=== PATIENT | female | born 1945 | race Caucasian/White ===

== ENCOUNTER 2024-09-29 12:39 | Outpatient (CLI) | payer MEDICARE, SELFPAY ==
--- NOTE | ~2024-09-29 | US_ITS ---
EXAMINATION: US FNA w image guidance DATE: 09/29/2024 14:01 INDICATION: Nontoxic single thyroid nodule TECHNIQUE: A time-out was performed to verify the patient's name, date of , and procedure to be performed . The procedure and its benefits and risks were discussed with the patient. Risks specifically discus sed included bleeding and infection. The patient understood the risks and agreed to proceed. The neck was prepped and draped in the usual sterile manner. 5 mL 1% lidocaine was used for local anesthesia . 10 passes were made with a 25G needle into the lesion. Appropriate needle location was documented with continuous sonographic guidance. A sterile bandage was applied. There were no immediate compl ications. FINDINGS: Grayscale ultrasound images demonstrate biopsy needles advanced into the cephalad-most solid hypoecho ic nodule at the mid left thyroid lobe 1.6 cm. IMPRESSION: 1. Successful ultrasound-guided fine needle aspiration of the largest 1.6 cm solid hypoechoic left t hyroid nodule of concern. Reviewed, dictated and finalized at location A. IMPRESSION: 1. Successful ultrasound-guided fine needle aspiration of the largest 1.6 cm s olid hypoechoic left thyroid nodule of concern.
--- OUTSIDE RECORDS SUMMARY | 2024-09-29 12:43 | XMS_ITS ---
Author Organization [facility] [place] Address [address] [place], [place] [id number] Care Team Providers Care Student Support Advisor Name Role Phone DILCIA WHITFIELD Unavailable [phone] Rosio oTmlin Unavailable Unavailable KELLI PIERRE Unavailable [phone] Allergies Allergen (clinical drug ingredient) Drug/Non Drug Allergy documented on EMR Reaction Allergy Type Onset Date Status rivaroxaban Xarelto Unknown Drug Allergy 07/19/2021 acti ve morphine Morphine Unknown Drug Allergy 07/19/2021 active REASON FOR VISIT *General care Medications Medication SIG (Take, Route, Fr equency, Duration) Notes Start Date End Date Status Clotrimazole 1 % 1 application Beam Worker ally Once a day; Duration: 30 days 08/23/2024 02/18/2025 Active Vital Signs Height 65.00 in 08/23/2024 Weight 210 lbs 08/23/2024 BMI 34.94 kg/m2 08/23/2024 Height-cm 165.10 cm 08/23/2024 Weight-kg 95.26 kg 08/23/2024 Encounters Encounter Location Date Provider Diagnosis [facility] [address] [facility] [address] [place], [place] [id number] 08/23/2024 KELLI PIERRE Nondisplaced fracture of cuboid bone of right foot, initial encounter for closed fracture S92.214A ; Stress fracture of metatarsal bone of right foot, initial encounter M84.374A ; Pain in right foot M79.671 and Tinea unguium B35.1 Assessments Encounter Date Diagnosis (ICD Code) Assessment Notes Treatment Notes Treatment Clinical Notes Section Notes 08/23/2024 Nondisplaced fracture of cuboid bone of right foot, initial encounter for closed fracture (ICD-10 - S92.214A) Cuboid Stress Fracture: I discussed with the patient the nature and etiology of stress fractures. I discussed various treatment options consisting of immobilization, reducing activity and rest. I also discussed the use of orthotics to help prevent recurrence. Cam Walker: A CAM walker was fitted and dispensed. The patient was instructed on its use. 08/23/2024 Stress fracture of metatarsal bone of right foot, initial encounter (ICD-10 - M84.374A) 08/23/2024 Pain in right foot (ICD-10 - M79.671) 08/23/2024 Tinea unguium (ICD-10 - B35.1) Plan Of Treatment Medication Medication Name Sig Start Date Stop Date Notes Clotrimazole 1 % 1 application Beam Worker ally Once a day; Duration: 30 days 08/23/2024 02/18/2025 Treatment Notes Assessment Notes Nondisplaced fracture of cub oid bone of right foot, initial encounter for closed fracture Cuboid Stress Fracture: I discussed with the patient the nature and etiology of stress fractures. I discussed various treatment options consisting of immobilization, reducing activity and rest. I also discussed the use of orthotics to help prevent recurrence. Cam Walker: A CAM walker was fitted and dispensed. The patient was instructed on its use. Next Appt Details Follow Up: 3 Weeks, Reason: Repeat xrays 3 views of the right foot. See how CAM boot helped. Orthotic scanning prn Provider Name:KELLI SHANKAR, 10/25/2024 10:40:00 AM, [address] [facility] [facility] [address], [place], [place], [id number], Progress Notes * WES IVANOB:05/1945 (79 yo F)Acc No.[id number]:08/23/2024 Patient: RICH ZACARIAS Provider: Del PIERRE :1945 A ge:78 Y S ex:Female Date:08/23/2024 Address:[address] [place], [place] [id number] Subjective: * Chief Complaints: * 1 . *General care. * HPI: H PI: General care P leo presents to the office for at risk foot care. Patient states that their nails are thickened, elongated and painful. Patient states that it is aggravated by shoe gear. Onset is gradual. Patient denies being diabetic., Patient is taking prescription blood thinners., Date last seen by Dr. Tomlin was 06/2024 ., Initials nd. * ROS: G eneral / Constitutional: Patient denies w eakness. R espiratory: Patient denies c hronic cough, shortness of breath, sputum production. C ardiovascular: Patient denies c hest pain, history of [place], irregular heartbeat. M usculoskeletal: Patient complains of h ammertoes, joint pain. ? S kin: Patient complains of f ungal nails, nail changes, calluses and corns. N eurologic: Patient denies d izziness, gait abnormality, headache. * Medical History: N o Reported Medical History.Medical History Verified. * Surgical History: D enies Past Surgical History. * Hospitalization/Major Diagno stic Procedure: D enies Past Hospitalization. * Family History: F ather: PRN - Father: :: Hypertension,,known absent . M other: PRN - Mother: :: Hypertension,,known absent . * Social History: M igrated Social History: M igrated Social History: Smoking Status : Current everyday tobacco user , Alcohol intake : , History of tobacco use : Current everyday tobacco user. * Medications: N one * Allergies: X arelto: Allergy - Onset Date 07/19/2021, Morphine: Allergy - Onset Date 07/19/2021. Objective: * Vitals: W t: 210 lbs, Wt-k.26 kg, Ht: 65.00 in, Ht-cm: 165.10 cm, BMI: 34.94 Index, Body Surface Area: 2.09. * Examination: C onstitutional: Constitutional T he patient is awake, alert, well developed, well groomed and well nourished. D ermatologic: Skin findings: S kin is warm, dry, supple with no breaks in the skin. V ascular: Dorsalis pedis pulse: 2 /4, bilateral. Posterior tibial pulse: 2 /4, bilateral. Capillary refill: l ess than 3 seconds. Edema: m ild nonpitting edema to right lateral rearfoot.? N eurologic: Gross sensation G ross sensation is intact to light touch.? M usculoskeletal: Muscle Strength M uscle strength is 5/5 in regards to dorsiflexion, plantarflexion, inversion, and eversion in bilateral lower extremities. Pain on palpation S evere pain on palpation to the right cuboid. NO pain to the 5th metatarsal base. No pain to the sinus tarsi. ? R adiographs: Right Foot N o evidence of fracture, dislocation, or other osseous lesions, however, there are some irregularities within the cuboid at the articulation of the 5th metatarsal base. It could be arthritis, old trauma, or stress reaction. Xray Order T est Requested: 3 Views Weightbearing (AP, LAT, Oblique) Foot, right. Assessment: * Assessment: 1. N ondisplaced fracture of cuboid bone of right foot, initial encounter for closed fracture - S92.214A (Primary) 2 . S tress fracture of metatarsal bone of right foot, initial encounter - M84.374A 3 . P ain in right foot - M79.671 4 . Tinea unguium - B35.1 Plan: * Treatment: 2. T inea unguium Start Clotrimazole Cream, 1 %, 1 application, Externally, Once a day, 30 days, 1 Unspecified, Refills 5. * Follow Up: 3 Weeks (Reason: Repeat xrays 3 views of the right foot. See how CAM boot helped. Orthotic scanning prn) * Billing Information: * Visit Code: 16062 Office Visit, Est Pt., Level 3. * Procedure Codes: * Electronic signature of LORRIE PIERRE DPM on 09/29/2024 at 12:43 PM CDT Sign off status: Pending * Provider: Del PIERRE Date: 0 08/23/2024 Generated for Kimberly Christiansen on: 0 09/29/2024 12:43 PM CDT History and Physical Notes * HPI (History of Present Illness) Category Sub-Category Detail Notes Category Not es HPI General care Patient presents to the office for at risk foot care. Patient states that their nails are thickened, elongated and painful. Patient states that it is aggravated by shoe gear. Onset is gradual. Patient denies being diabetic., Patient is taking prescription blood thinners., Date last seen by Dr. Tomlin was 06/2024 ., Initials nd Examination Category Sub-Category Detail Notes Category Not es Dermatologic Skin findings: Skin is warm, dr noriega, supple with no breaks in the skin Neurologic Gross sensation Gross sensation is intact to light touch Vascular Dorsalis pedis pulse: 2/4, bilateral Edema: mild nonpitting brenda a to right lateral rearfoot Capillary refill: less than 3 seconds Posterior tibial pulse: 2/4, bilateral Musculoskeletal Muscle Strength Muscle strength is 5/5 in regards to dorsiflexion, plantarflexion, inversion, and eversion in bilateral lower extremities Pain on palpation Severe pain on palpa tion to the right cuboid. NO pain to the 5th metatarsal base. No pain to the sinus tarsi Constitutional Constitutional The patient is a wake, alert, well developed, well groomed and well nourished Radiographs Right Foot No evidence of f racture, dislocation, or other osseous lesions, however, there are some irregularities within the cuboid at the articulation of the 5th metatarsal base. It could be arthritis, old trauma, or stress reaction Xray Order Test Requested: 3 Vi ews Weightbearing (AP, LAT, Oblique) Foot, right
--- OUTSIDE RECORDS SUMMARY | 2024-09-29 12:43 | XMS_ITS | Encounter Summary ---
Author Organization [facility] Care Team Providers Care Pump Machine Operator Name Role Phone Kvng London MD Primary Care Provider [phone] No, Physician Primary Care Provider [phone] Kvng London MD Primary Care Provider [phone] Natividad, Physician Primary Care Provider [phone] Kvng London MD Primary Care Provider [phone] Natividad, Physician Primary Care Provider [phone] Kvng London MD Primary Care Provider [phone] Rosio Tomlin NP Primary Care Provider [phone] Encounter Details Date Type Department Care Team (Latest Contact Info) Description 05/16/2015 Orders Only [facility] ProviderElisabet MD [address] [place] [id number] Social History Tobacco Use Types Packs/Day Years Used Date Smoking Tobacco: Never Assessed Comments Unknown Sex and Gender Information Value Date Recorded Sex Assigned at Not on file Legal Sex 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 us Historical Provider Final Res ult documented in this encounter Visit Diagnoses Not on filedocumented in this encounter Care Teams Pump Machine Operator Relationship Specialty Start Date End Date Kvng London MD PCP - General 09/29/16 10/14/16 No, Physician PCP - General 10/15/16 10/20/16 Kvng London MD PCP - General 10/21/16 10/30/16 No, Physician PCP - General 10/31/16 11/03/16 Kvng London MD PCP - General 11/04/16 11/04/16 No, Physician PCP - General 11/05/16 11/13/16 Kvng London MD PCP - General 11/14/16 01/02/20 Rosio Tomlin, APPAREL SALES ASSOCIATE [address] [place] [address] PCP - General Atomic Process Engineer 01/03/20 documented as of this encounter
--- OUTSIDE RECORDS SUMMARY | 2024-09-29 12:43 | XMS_ITS | Clinical Summary ---
Author Organization [facility] [employer] Address [address] [place] [address] Care Team Providers Care Handkerchief Sample Clerk Name Role Phone Rosio Tomlin NP Primary Care Provider [phone] Allergies Active Allergy Reactions Criticality Noted Date Comments Codeine Unknown,Nausea only,Stomach upset Low 08/16/2015 Stomach/GI Upset Morphine Itching,Unknown Low 08/16/2015 Itching Morphine Sulfate Unknown 01/07/2016 Other Cough Low 08/16/2015 induces asthma attacks Rivaroxaban Rash,Unknown Medium 08/17/2017 xarelto allergy. Hemorrhaging in thigh, pain in veins, fluid filled blister aside of knee (after knee replacement) Medications atorvastatin (LIPITOR) 40 mg tablet 0 Active Omnaris 50 mcg nasal spray U 2 SPRAYS IEN QD 0 Active sertraline (ZOLOFT) 100 mg tablet 0 Active traZODone (DESYREL) 50 mg tablet 0 Active triamcinolone (KENALOG) 0.5 % cream FRANCHESCA EXT AA TID 0 Active traMADoL (ULTRAM) 50 mg tablet Take 1 tablet (50 mg total) by mouth every 6 (six) hours as needed for pain Active fexofenadine (SAYDA) 60 mg tablet Active hydrocortisone 2.5 % cream APPLY RECTALLY TO THE AFFECTED AREA TWICE DAILY NEEDED 1 Active losartan (COZAAR) 100 mg tablet 2 Active amLODIPine (NORVASC) 10 mg tablet 2 Active potassium chloride ER 10 mEq CR tablet 2 Active cholecalciferol (VITAMIN D-3) 2000 unit tablet Act yenni calcium carbonate/vitami n D3 (CALCIUM 600 + D,3, ORAL) Take by mouth Active phenazopyridine (PYRIDIUM) 200 mg tablet 2 Active biotin 300 mcg tablet 1 tablet Active albuterol 2.5 mg /3 mL (0.083 %) nebulizer solutionIndicati ons:Mild intermittent asthma without complication,ILD (interstitial lung disease) (FORM[facility]LY [facility]) Take 3 mL (2.5 mg total) by nebulization every 6 (six) hours as needed for wheezing or shortness of breath 360 mL 3 4 Active cefdinir (OMNICEF) 300 mg capsule Take 1 capsule (300 mg total) by mouth 2 (two) times a day 4 Active albuterol HFA (PROVENTIL HFA,VENTOLIN HFA,PROAIR HFA) 90 mcg/actuation inhaler Inhale 2 puffs every 6 (six) hours as needed for wheezing 1 each 1 4 Active montelukast (SINGULAIR) 10 mg tablet Take 1 tablet (10 mg total) by mouth nightly 90 tablet 3 5 Active fluticasone propion-salmeter oL (ADVAIR DISKUS) 500-50 mcg/dose diskus inhaler Inhale 1 puff 2 (two) times a day Rinse mouth with water after use. Do not swallow. 1 each 11 5 Active lidocaine (LIDODERM) 5 %Indications:Chr onic pain of left knee Place 1 patch on the skin daily for 12 hours Apply to left knee as directed. 30 patch 3 5 Active Eliquis 5 mg tablet Take by mouth 2 (two) times a day 5 Active gabapentin (NEURONTIN) 100 mg capsule Take 1 capsule (100 mg total) by mouth 3 (three) times a day 5 Active Active Problems Problem Noted Date Diagnosed Date Nasal septal perforation 09/15/2023 Non-seasonal allergic rhinitis 09/15/2023 Pulmonary nodule 09/18/2022 Ear fullness, left 09/03/2022 Assessment & Plan (09/03/2022 9:15 PM CDT): Both ears look good. I do not find any evidence of infection. Audiologic testing is also normal and shows no evidence of eustachian tube dysfunction or hearing loss. I think her symptoms are probably referred and likely secondary to her spinal stenosis. I think she should probably ask physical therapy at her next appointment to possibly address her neck issues. Otherwise I really did not have any further recommendations. I will see her as needed however. Spinal stenosis of cervical region 09/03/2022 Assessment & Plan (09/03/2022 9:16 PM CDT): I think this is probably causing her symptoms. I really did not find anything problematic. She is a talk with her primary and or her physical therapist about this. She can always follow up as needed however. Obstructive sleep apnea 04/07/2021 Mild intermittent asthma 04/01/2021 ILD (interstitial lung disease) 04/01/2021 Smoking greater than 40 pack years 04/01/2021 Recurrent major depressive disorder, in full rem ission 03/01/2021 Aortic calcification 12/06/2020 S/P reverse total shoulder arthroplasty, left Rotator cuff arthropathy of left shoulder 2018 Other cervical disc displace ment, unspecified cervical region 03/24/2018 Other cervical disc degenera tion, unspecified cervical region 03/24/2018 Spondylolisthesis of cervicothoracic region 07/2018 Cervical radiculopathy 02/23/2018 Overview (09/28/2021): Added automatically from request for surgery [id number] OAB (overactive bladder) 04/09/2017 Overview (09/28/2021): Takes meds prn Urinary incontinence 01/16/2017 Abnormal carotid ultrasound 10/27/2016 Chest pain 10/08/2016 Hyperlipidemia 10/08/2016 Paroxysmal atrial fibrillation 10/08/2016 Hypertension 10/08/2016 Chronic rhinitis 09/16/2016 Obesity (BMI 35.0-39.9 without comorbidity) 03/2016 Other chronic pain 05/21/2016 Insomnia 02/26/2016 Urge incontinence 02/26/2016 Knee pain 01/03/2016 Osteoarthritis 08/15/2015 Anxiety 04/12/2013 Asthma 04/12/2013 Depression 04/12/2013 Lichen sclerosus et atrophicus of the vulva 03/20 Ocular hypertension 04/12/2013 Post-traumatic stress disorder 04/12/2013 Encounters Date Type Department Care Team Description 09/12/2024 11:30 AM CDT Office Visit [facility] [place] [address] [place] [address] Jesse Reese MD Pulmonary nodule (Primary Dx); Mild intermittent asthma without complication; Chronic rhinitis; Primary hypertension 08/22/2024 12:46 PM CDT - 08/22/2024 11:59 PM CDT Hospital Encounter [facility] Respiratory Therapy [address] [place] [address] ILD (interstitial lung disease) ([facility]) Discharge Disposition: Discharge to home or self care from Last 3 Months Immunizations Immunization Administration Dates Next Due Influenza, Quadrivalent, Hig h Dose, Preservative Free, Intrr 11/02/2019 Influenza, Trivalent, Adjuva nted, Intramuscular 11/24/2017,11/23/2017 Influenza, Trivalent, High D ose, Split, Preservative Free, Intramuscular 11/16/2016,12/01/2015 Influenza, Trivalent, IM (MDV) 10/31/2013 Influenza, Trivalent, Preser vative Free, Intramuscular 12/10/2014 Influenza, Unspecified 11/12/2020,2019,11/24/2017,11/16,12/01/2015 Moderna Sars-cov-2 Monovalen t Booster Vaccination .25 Ml dose (12+ YRS) 05/17/2021 Pneumococcal Conjugate PCV 13 08/17/2017 Pneumococcal Polysaccharide PPV23 02/16/2011 Surgical History Surgery Date Site/Laterality Comments BICEPS TENODESIS COLONOSCOPY FRACTURE SURGERY HYSTERECTOMY REPLACEMENT TOTAL KNEE SHOULDER SURGERY BLADDER SUSPENSION TONSILLECTOMY ELBOW SURGERY REPLACEMENT TOTAL KNEE Bilateral Medical History Medical History Date Comments Allergic rhinitis Anxiety Arthritis Asthma Depression Hyperlipidemia Hypertension Lichen sclerosus Obesity PTSD (post-traumatic stress disorder) Spinal stenosis Urinary incontinence Cervical disc disease Cervical stenosis (uterine cervix) Dermatitis Lumbar stenosis Disc disorder of lumbar region Osteopenia Osteoarthritis HL (hearing loss) Family History Medical History Relation Name Comments Heart attack Father Family history of heart attack - (Added by TW Conv) Heart disease Father Hypertension Father Family history of hypertension - (Added by TW Conv) Sudden Cardiac Father Family history of sudden cardiac - (Added by TW Conv) Heart attack Mother Family history of heart attack - (Added by TW Conv) Heart disease Mother Hypertension Mother Family history of hypertension - (Added by TW Conv) Stroke Mother Family history of stroke - (Added by TW Conv) Sudden Cardiac Mother Family history of sudden cardiac - (Added by TW Conv) Heart disease Other 1 Family history of cardiac disorder - (Added by TW Conv) Arthritis Other 2 Family history of arthritis - (Added by TW Conv) Gout Other 3 Family history of gout - (Added by TW Conv) Stroke Other 4 Family history of cerebrovascular accident (CVA) - (Added by TW Conv) Alcohol abuse Other 5 Family history of alcoholism - (Added by TW Conv) Hypertension Other 6 Family history of hypertension - (Added by TW Conv) Relation Name Status Comments Father Mother Other 1 Other 2 Other 3 Other 4 Other 5 Other 6 Social History Tobacco Use Types Packs/Day Years Used Date Smoking Tobacco: Former Cigarettes 0.2 34.6 S tarted: 1990 Smokeless Tobacco: Never Tobacco Cessation:Counseling Given: Not Answered AUDIT-C Answer Date Recorded Q1: How often do you have a drink containing alc ohol? Monthly or less 10/01/2021 Q2: How many drinks containi ng alcohol do you have on a typical day when you are drinking? 1 or 2 10/01/2021 Q3: How often do you have si x or more drinks on one occasion? Never 10/01/2021 Comments Unknown Sex and Gender Information Value Date Recorded Sex Assigned at Not on file Legal Sex Female 8:56 AM BAG HANGER Gender Identity Not on file Sexual Orientation Not on file Obstetrics History Last Filed Vital Signs Vital Sign Reading Time Taken Comments Blood Pressure 112/70 09/12/2024 11:25 AM CDT Pulse 67 09/12/2024 11:25 AM CDT Temperature 35.7 C (96.3 F) 09/12/2024 11:25 AM CDT Respiratory Rate 18 09/12/2024 11:25 AM CDT Oxygen Saturation 89% 09/12/2024 11:25 AM CDT Inhaled Oxygen Concentration - - Weight 105.7 kg (233 lb) 09/12/2024 11:25 AM CDT Height 165.1 cm (5' 5) 09/12/2024 11:25 AM CDT Body Mass Index 38.77 09/12/2024 11:25 AM CDT Plan of Treatment Health Maintenance Due Date Last Done Comments Depression Screening 1944 Fall Risk Assessment 1944 Hepatitis B Screening 1962 Zoster Vaccine (1 of 2) 1994 Well Visit 65+ 2009 Osteoporosis Screening-Bone Density Scan 06/25/2022 06/25/2020, 03/14/2015 Covid-19 Vaccine (5 2023-2 5 season) 2023 05/17/2021, 12/07/2020, 04/11/2020, Additional history exists Influenza Vaccine (#1) 2024 , 11/17/2023, 11/12/2020, Additional history exists DTaP/Tdap/Td Vaccine (2 - Td or Tdap) 10/19/2033 10/20/2023 Pneumococcal vaccine 65+ Completed 08/17/2017, 02/2011 Procedures Procedure Name Priority Date/Time Associated Diagnosis Comments PULMONARY FUNCTION TEST (PFT) Routine 08/22/2024 1:43 PM CDT ILD (interstitial lung disease) (HCC) DEXA AXIAL SKELETON BONE DENSITY 1 OR MORE SITES Routine 03/14/2015 2:52 PM BAG HANGER from Last 3 Months or Most Recently Relevant to Health Maintenance Results * (ABNORMAL) Pulmonary Function Test - (08/22/2024 1:43 PM CDT) FVC POST 2.69 1.91 - 3.59 L [facility] FEV1 POST 1.85 1.45 - 2.66 L [facility] [id number] 68.68 62.17 - 89.42 % [facility] ABK00-26% POST 1.29 0.68 - 3.05 L/s [facility] PEF POST 3.88(A) 4.26 - 7.22 L/s [facility] DLCOc SB 14.65(A) 15.47 - 26.94 ml/(min*mm Hg) [facility] DLCO/VA PRE 3.63 2.70 - 5.34 ml/(min*mm Hg*L) [facility] VA 4.03(A) 5.12 - 5.12 L [facility] TLC PRE 5.57 4.29 - 6.26 L [facility] VC PRE 2.75 1.95 - 3.33 L [facility] IC PRE 2.51(A) 2.10 - 2.10 [address] [facility] FRC PL PRE 3.06 2.01 - 3.66 L [facility] ERV PRE 0.24(A) 0.54 - 0.54 L [facility] RV PRE 2.82 1.72 - 2.87 L [facility] VTG 3.23 L [facility] RAW PRE 3.25(A) 3.06 - 3.06 cmH2O*s/L [facility] FVC PRE 2.72 1.91 - 3.59 L [facility] FEV1 PRE 1.89 1.45 - 2.66 L [facility] [id number] 69.63 62.17 - 89.42 % [facility] FLM97-20% PRE 0.51(A) 0.68 - 3.05 L/s [facility] PEF PRE 4.77 4.26 - 7.22 L/s [facility] Anatomical Region Laterality Modality PFT 08/22/2024 12:4 8 PM CDT Narrative 08/23/2024 5:20 PM CDT PFT INTERPRETATION Spirometry: Normal spirometry though FEV1/FVC ratio does approach the lower limit of normal There is no significant response to bronchodilator administration. This does not preclude the use of bronchodilator therapy if clinically indicated. Flow volume loop: obstructive pattern Lung volumes: Mild air trapping. Normal lung capacity. Decreased expiratory reserve volume which is typically related to obesity or other abdominal processes. DLCO: Mild diffusion impairment with pattern suggestive of chest wall/obesity effects on ventilation or suboptimal inspiration during testing. Electronically signed by Dayday Escalona MD us Jesse Reese MD PFT ORDERABLES Final Result * Dexa Axial Skeleton Bone Density 1 or 2 Site (03/14/2015 2:52 PM BAG HANGER) Anatomical Region Laterality Modality Body N/A Radiographic Bailee ging 03/14/2015 2:52 PM BAG HANGER Impressions 03/14/2015 3:30 PM BAG HANGER Low bone mass. Fracture risk, as above. Bone mineral density: Normal (T-score above or = -1.0) Low bone mass (T-score between -1.0 and -2.5) replaces the previously used term osteopenia Osteoporosis (T-score = or below -2.5) Medical evaluation for secondary causes of low bone mineral density may be appropriate. FRAX is a World Health Organization validated fracture risk assessment tool that calculates a person's 10 year probability of a major osteoporosis related fracture and hip fracture. According to the National Osteoporosis Foundation guidelines, postmenopausal women and men age 50 or older with low bone mass and a 10 year probability of a major osteoporosis related fracture = or greater than 20% or a 10 year probability of a hip fracture = or greater than 3% should be considered for treatment. For further information, including treatment recommendations, please refer to the 2013 ISCD Official Positions (http://www.iscd.org) and the NOF's Clinician's Guide to Prevention and Treatment of Osteoporosis (http://www.nof.org/professionals/clinical-guidelines) THIS IS AN ELECTRONICALLY VERIFIED REPORT 03/14/2015 3:26 PM: Jori Calvert M.D. Jori Calvert M.D. NH:jose 03:26 PM 03:26 PM [facility] [EOD] Narrative 03/14/2015 3:30 PM BAG HANGER EXAMINATION: Dual x-ray absorptiometry (DEXA) HISTORY: 69 year old postmenopausal female. Current Height: 64 inches Maximum Height: 66.5 inches Weight: 226 pounds RISK FACTORS: History of glucocorticoid use. She has taken hormone-replacement therapy, multivitamin and vitamin D. She regularly performs weightbearing exercise and regularly consumes dairy products and caffeinated beverages. COMPARISON(S): None INSOLE ROUNDER/MODEL: Soniq[employer] SL (S/N 06037) FINDINGS: AP lumbar spine L1-L4 Total BMD is 1.254 g/ey2R-zzxcc is 1.9 Measured BMD is thought to be spuriously elevated due to arthropathy. Left Hip Total BMD is 0.895 g/pz6J-nrpwc is -0.4 Neck BMD is 0.641 g/uy8E-hecur is -1.9 Fracture risk assessment (FRAX): 10 year risk for a major osteoporotic fracture is 15 % 10 year risk for a hip fracture is 2.9 % The FRAX tool has not been validated in patients currently or previously treated with pharmacotherapy for osteoporosis. In such patients, clinical judgement must be exercised in interpreting FRAX scores as the fracture risk may be overestimated. Procedure Note Provider, MD Elisabet - 07/04/2020 EXAMINATION: Dual x-ray absorptiometry (DEXA) HISTORY: 69 year old postmenopausal female. Current Height: 64 inches Maximum Height: 66.5 inches Weight: 226 pounds RISK FACTORS: History of glucocorticoid use. She has taken hormone-replacement therapy, multivitamin and vitamin D. She regularly performs weightbearing exercise and regularly consumes dairy products and caffeinated beverages. COMPARISON(S): None INSOLE ROUNDER/MODEL: Soniq[employer] SL (S/N 02074) FINDINGS: AP lumbar spine L1-L4 Total BMD is 1.254 g/ix1R-xnoni is 1.9 Measured BMD is thought to be spuriously elevated due to arthropathy. Left Hip Total BMD is 0.895 g/le7C-iuvhw is -0.4 Neck BMD is 0.641 g/bk4A-oiyuw is -1.9 Fracture risk assessment (FRAX): 10 year risk for a major osteoporotic fracture is 15 % 10 year risk for a hip fracture is 2.9 % The FRAX tool has not been validated in patients currently or previously treated with pharmacotherapy for osteoporosis. In such patients, clinical judgement must be exercised in interpreting FRAX scores as the fracturerisk may be overestimated. IMPRESSION: Low bone mass. Fracture risk, as above. Bone mineral density: Normal (T-score above or = -1.0) Low bone mass (T-score between -1.0 and -2.5) replaces the previously used term osteopenia Osteoporosis (T-score = or below -2.5) Medical evaluation for secondary causes of low bone mineral density may be appropriate. FRAX is a World Health Organization validated fracture risk assessmenttool that calculates a person's 10 year probability of a major osteoporosisrelated fracture and hip fracture. According to the National OsteoporosisFoundation guidelines, postmenopausal women and men age 50 or older with low bonemass and a 10 year probability of a major osteoporosis related fracture = or greater than 20% or a 10 year probability of a hip fracture = or greaterthan 3% should be considered for treatment. For further information, including treatment recommendations, please referto the 2013 ISCD Official Positions (http://www.iscd.org) and the NOF's Clinician's Guide to Prevention and Treatment of Osteoporosis (http://www.nof.org/professionals/clinical-guidelines) THIS IS AN ELECTRONICALLY VERIFIED REPORT 03/14/2015 3:26 PM: Jori Calvert M.D. Jori Calvert M.D. NH:ca 03:26 PM 03:26 PM [facility] [EOD] Aleax Llamas DO IMG DXA PROCEDURES Fin al Result from Last 3 Months or Most Recently Relevant to Health Maintenance Insurance [facility] MEDICARE ADVANTAGE [facility] MEDICARE ADVANTAGE Advance Directives For more information, please contact: [phone] Documents on File Type Date Recorded Patient Heating Technician Expl anation ADVANCE DIRECTIVE 08/16/2015 12:00 AM KIM Herndon OF [employer] Care Teams Handkerchief Sample Clerk Relationship Specialty Start Date End Date Rosio Tomlin NP [address] [place] [address] PCP - General Collection Officer 01/03/20
--- OUTSIDE RECORDS SUMMARY | 2024-09-29 12:43 | XMS_ITS | Encounter Summary ---
Author Organization [facility] Facility Care Team Providers Care Grip Boss Name Role Phone Kvng London MD Primary Care Provider [phone] No, Physician Primary Care Provider [phone] Kvng London MD Primary Care Provider [phone] Natividad, Physician Primary Care Provider [phone] Kvng London MD Primary Care Provider [phone] Natividad, Physician Primary Care Provider [phone] Kvng London MD Primary Care Provider [phone] Rosio Tomlin NP Primary Care Provider Encounter Details Date Type Department Care Team (Latest Contact Info) Description 08/15/2015 Orders Only [facility] ProviderElisabet MD [address] [place] [address] Social History Tobacco Use Types Packs/Day Years Used Date Smoking Tobacco: Never Assessed Comments Unknown Sex and Gender Information Value Date Recorded Sex Assigned at Not on file Legal Sex Female 8:56 AM APPEALS NURSE Gender Identity Not on file Sexual Orientation Not on file documented as of this encounter Plan of Treatment Not on file documented as of this encounter Procedures Procedure Name Priority Date/Time Associated Diagnosis Comments PROCEDURE - RESULT 08/15/2015 12 :00 AM CDT documented in this encounter Results * PROCEDURE - RESULT (08/15/2015 12:00 AM CDT) Narrative 08/15/2015 12:00 AM CDT Ordered by an unspecified provider. us Historical Provider Final Res ult documented in this encounter Visit Diagnoses Not on filedocumented in this encounter Care Teams Grip Boss Relationship Specialty Start Date End Date Kvng London MD PCP - General 09/29/16 10/14/16 No, Physician PCP - General 10/15/16 10/20/16 Kvng London MD PCP - General 10/21/16 10/30/16 No, Physician PCP - General 10/31/16 11/03/16 Kvng London MD PCP - General 11/04/16 11/04/16 No, Physician PCP - General 11/05/16 11/13/16 Kvng London MD PCP - General 11/14/16 01/02/20 Rosio Tomlin, CEREAL MILLER [address] [place] [address] PCP - General Arm Maker 01/03/20 documented as of this encounter
--- OUTSIDE RECORDS SUMMARY | 2024-09-29 12:43 | XMS_ITS | Encounter Summary ---
Author Organization [facility] Facility Care Team Providers Care Back Wedger Name Role Phone Kvng London MD Primary Care Provider [phone] No, Physician Primary Care Provider [phone] Kvng London MD Primary Care Provider [phone] Natividad, Physician Primary Care Provider [phone] Kvng London MD Primary Care Provider [phone] Natividad, Physician Primary Care Provider [phone] Kvng London MD Primary Care Provider Rosio Tomlin NP Primary Care Provider [phone] Encounter Details Date Type Department Care Team (Latest Contact Info) Description 08/07/2015 Orders Only [facility]INCON[facility] ProviderElisabet MD [address] [place] [address] Social History Tobacco Use Types Packs/Day Years Used Date Smoking Tobacco: Never Assessed Comments Unknown Sex and Gender Information Value Date Recorded Sex Assigned at Not on file Legal Sex Female 8:56 AM DISTILLING DEPARTMENT SUPERVISOR Gender Identity Not on file Sexual Orientation Not on file documented as of this encounter Plan of Treatment Not on file documented as of this encounter Procedures Procedure Name Priority Date/Time Associated Diagnosis Comments PROCEDURE - RESULT 08/08/2015 12 :00 AM CDT documented in this encounter Results * PROCEDURE - RESULT (08/08/2015 12:00 AM CDT) Narrative 08/08/2015 12:00 AM CDT Ordered by an unspecified provider. us Historical Provider Final Res ult documented in this encounter Visit Diagnoses Not on filedocumented in this encounter Care Teams Back Wedger Relationship Specialty Start Date End Date Kvng London MD PCP - General 09/29/16 10/14/16 No, Physician PCP - General 10/15/16 10/20/16 Kvng London MD PCP - General 10/21/16 10/30/16 No, Physician PCP - General 10/31/16 11/03/16 Kvng London MD PCP - General 11/04/16 11/04/16 No, Physician PCP - General 11/05/16 11/13/16 Kvng London MD PCP - General 11/14/16 01/02/20 Rosio Tomlin, CURRICULUM SUPERVISOR [address] [place] [address] PCP - General Front Desk Specialist 01/03/20 documented as of this encounter
--- OUTSIDE RECORDS SUMMARY | 2024-09-29 12:43 | XMS_ITS | Encounter Summary ---
Author Organization [facility] Facility Care Team Providers Care Social Work Supervisor Name Role Phone Kvng London MD Primary Care Provider [phone] No, Physician Primary Care Provider [phone] Kvng London MD Primary Care Provider [phone] Natividad, Physician Primary Care Provider [phone] Kvng London MD Primary Care Provider [phone] Natividad, Physician Primary Care Provider [phone] Kvng London MD Primary Care Provider [phone] Rosio Tomlin NP Primary Care Provider [phone] Encounter Details Date Type Department Care Team (Latest Contact Info) Description 03/14/2015 Orders Only [facility] ProviderElisabet MD [address] [place] [id number] Social History Tobacco Use Types Packs/Day Years Used Date Smoking Tobacco: Never Assessed Comments Unknown Sex and Gender Information Value Date Recorded Sex Assigned at Not on file Legal Sex Female 8:56 AM CASTER OPERATOR Gender Identity Not on file Sexual Orientation Not on file documented as of this encounter Plan of Treatment Not on file documented as of this encounter Procedures Procedure Name Priority Date/Time Associated Diagnosis Comments SCAN - LABS 03/21/2015 12:00 AM CASTER OPERATOR documented in this encounter Results * SCAN - LABS (03/21/2015 12:00 AM CASTER OPERATOR) Narrative 03/21/2015 12:00 AM CASTER OPERATOR Ordered by an unspecified provider. us Historical Provider Final Res ult documented in this encounter Visit Diagnoses Not on filedocumented in this encounter Care Teams Social Work Supervisor Relationship Specialty Start Date End Date Kvng London MD PCP - General 09/29/16 10/14/16 No, Physician PCP - General 10/15/16 10/20/16 Kvng London MD PCP - General 10/21/16 10/30/16 No, Physician PCP - General 10/31/16 11/03/16 Kvng London MD PCP - General 11/04/16 11/04/16 No, Physician PCP - General 11/05/16 11/13/16 Kvng London MD PCP - General 11/14/16 01/02/20 Rosio Tomlin TRANSPORTATION SECURITY OFFICER [address] [place] [address] PCP - General Business Education Instructor 01/03/20 documented as of this encounter
--- OUTSIDE RECORDS SUMMARY | 2024-09-29 12:44 | XMS_ITS ---
Author Organization [facility] Address [address] [place], [place] [id number] Care Team Providers Care Ink Blender Name Role Phone DILCIA WHITFIELD Unavailable [phone] Rosio Tomlin Unavailable Unavailable KELLI PIERRE Unavailable [phone] Allergies Allergen (clinical drug ingredient) Drug/Non Drug Allergy documented on EMR Reaction Allergy Type Onset Date Status rivaroxaban Xarelto Unknown Drug Allergy 07/19/2021 acti ve morphine Morphine Unknown Drug Allergy 07/19/2021 active REASON FOR VISIT stress fracture check with xray Medications Medication SIG (Take, Route, Fr equency, Duration) Notes Start Date End Date Status Clotrimazole 1 % 1 application Signal Integrity Engineer ally Once a day; Duration: 30 days 08/23/2024 02/18/2025 Active Vital Signs Height 65.00 in 09/13/2024 Weight 230 lbs 09/13/2024 BMI 38.27 kg/m2 09/13/2024 Height-cm 165.10 cm 09/13/2024 Weight-kg 104.33 kg 09/13/2024 Encounters Encounter Location Date Provider Diagnosis [facility] [address] [place], [place] [id number] 09/13/2024 KELLI PIERRE Plan Of Treatment Next Appt Details Provider Name:KELLI SHANKAR, 10/25/2024 10:40:00 AM, [address], [place], [place], [id number], Progress Notes * WES IVANOB:05/1945 (79 yo F)Acc No.[id number]:09/13/2024 Patient: RICH ZACARIAS Provider: Del PIERRE :1945 A ge:78 Y S ex:Female Date:09/13/2024 Address:[address] [place] [address] [place] [address] Subjective: * Chief Complaints: * 1 . Stress fracture check with xray. * HPI: H PI: Follow Up Visit P leo presents for follow up visit for a fracture on the right foot. Patient states it hurts when he doesnt wear arch support. , MA: CARMELO.? * Medical History: M edical History Verified. * Family History: F ather: PRN - Father: :: Hypertension,,known absent . M other: PRN - Mother: :: Hypertension,,known absent . * Social History: M igrated Social History: M igrated Social History: Smoking Status : Current everyday tobacco user , Alcohol intake : , History of tobacco use : Current everyday tobacco user. * Medications: T aking Clotrimazole 1 % Cream 1 application Externally Once a day , stop date 02/18/2025, Medication List reviewed and reconciled with the patient * Allergies: X arelto: Allergy - Onset Date 07/19/2021, Morphine: Allergy - Onset Date 07/19/2021. Objective: * Vitals: W t: 230 lbs, Wt-k.33 kg, Ht: 65.00 in, Ht-cm: 165.10 cm, BMI: 38.27 Index, Body Surface Area: 2.19. Assessment: Plan: * Treatment: * Immunizations: Immunization record has been reviewed and updated. * Preventive Medicine: Screenings: F all risk screening F all Risk Assessment: N o falls in the past year. * Billing Information: * Visit Code: * Procedure Codes: * Electronic signature of LORRIE PIERRE DPM on 09/29/2024 at 12:44 PM CDT Sign off status: Pending * Provider: Del PIERRE Date: 0 09/13/2024 Generated for Kimberly turk/Liliana/eTzainitting on: 09/29/2024 12:44 PM CDT History and Physical Notes * HPI (History of Present Illness) Category Sub-Category Detail Notes Category Not es HPI Follow Up Visit Patient presents for follow up visit for a fracture on the right foot. Patient states it hurts when he doesnt wear arch support. , MA: CARMELO
--- OUTSIDE RECORDS SUMMARY | 2024-09-29 12:44 | XMS_ITS | Patient Health Record ---
Author Organization [facility] Address [address] [facility] [address] [place], [place] [id number] Care Team Providers Care Lugger Name Role Phone DILCIA WHITFIELD Unavailable [phone] Rosio Tomlin Unavailable Unavailable ALVINAYYESSENIACODY Unavailable [phone] KELLI PIERRE Unavailable [phone] Allergies Allergen (clinical drug ingredient) Drug/Non Drug Allergy documented on EMR Reaction Allergy Type Onset Date Status rivaroxaban Xarelto Unknown Drug Allergy 07/19/2021 acti ve morphine Morphine Unknown Drug Allergy 07/19/2021 active Reason For Referral No Information Medications Medication SIG (Take, Route, Fr equency, Duration) Notes Start Date End Date Status Clotrimazole 1 % 1 application Cook Helper Juice ally Once a day; Duration: 30 days 08/23/2024 02/18/2025 Active Immunizations Vaccine Route Administration Date Status Comme nts Influenza, high dose seasonal Unknown 11/15/2022 Admini stered Vital Signs Height-cm 165.10 cm 09/13/2024 Weight-kg 104.33 kg 09/13/2024 Height 65.00 in 09/13/2024 Weight 230 lbs 09/13/2024 BMI 38.27 kg/m2 09/13/2024 Encounters Encounter Location Date Provider Diagnosis [facility] [address] [place], [place] [id number] 03/14/2024 DILCIA WHITFIELD Tinea unguium B35.1 ; Acquired keratosis [keratoderma] palmaris et plantaris L85.1 ; 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, bilateral legs I70.213 ; Pain in right foot M79.671 and Pain in left foot M79.672 [facility] [address] [place], [place] [id number] 08/23/2024 KELLI PIERRE Nondisplaced fracture of cuboid bone of right foot, initial encounter for closed fracture S92.214A ; Stress fracture of metatarsal bone of right foot, initial encounter M84.374A ; Pain in right foot M79.671 and Tinea unguium B35.1 [facility] [address] [place], [place] [id number] 08/30/2024 DILCIA SNOOK Pain in right foot M79.671 and Nondisplaced fracture of cuboid bone of right foot, subsequent encounter for fracture with routine healing S92.214D [facility] [address] [place], [place] [id number] 09/13/2024 KELLI PIERRE [facility] [address] [place], [place] [id number] 10/14/2023 CODY GARCIA Other hammer toe(s) (acquired), right foot M20.41 ; Tinea unguium B35.1 ; Other hammer toe(s) (acquired), left foot M20.42 ; Pain in right toe(s) M79.674 ; Pain in left toe(s) M79.675 ; Pain in right foot M79.671 ; Pain in left foot M79.672 ; Unspecified atherosclerosis of torres martinez arteries of extremities, bilateral legs I70.203 and Acquired keratosis [keratoderma] palmaris et plantaris L85.1 [facility] [address] [place], [place] [id number] 12/18/2023 CODY GARCIA Other hammer toe(s) (acquired), right foot M20.41 ; Tinea unguium B35.1 ; Other hammer toe(s) (acquired), left foot M20.42 ; Pain in right toe(s) M79.674 ; Pain in left toe(s) M79.675 ; Pain in right foot M79.671 ; Pain in left foot M79.672 ; Unspecified atherosclerosis of torres martinez arteries of extremities, bilateral legs I70.203 and Acquired keratosis [keratoderma] palmaris et plantaris L85.1 [facility] [place] [address] [facility] [address] [place], [place] [id number] 05/17/2024 DILCIA SNOOK Tinea unguium B35.1 ; Acquired keratosis [keratoderma] palmaris et plantaris L85.1 ; 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, bilateral legs I70.213 ; Pain in right foot M79.671 and Pain in left foot M79.672 [facility] [address] [place], [place] [id number] 08/05/2024 DILCIA SNOOK Nondisplaced fractur e of cuboid bone of right foot, initial encounter for closed fracture S92.214A ; Stress fracture of metatarsal bone of right foot, initial encounter M84.374A and Pain in right foot M79.671 Assessments Encounter Date Diagnosis (ICD Code) Assessment Notes Treatment Notes Treatment Clinical Notes Section Notes 10/14/2023 Tinea unguium (ICD-10 - B35.1) Aseptic debridement of elongated thickened nails x 10 using sterile nippers, nails were debrided in length and thickness by 30% utilizing a nail nipper without incident. The patient was educated regarding all treatment options that include topical and oral antifungal treatments. I discussed the options of taking a sample of the nail to confirm diagnosis. Nail clippings were not sent for pathology analysis. The patient was educated why and how the fungal infection evolved in their feet and the patient was given information regarding how to prevent further infection. The patient was told to keep feet dry and change socks. The patient was told to be careful with old shoes and excessive sweating. The patient was educated regarding both OTC and prescription treatments. 10/14/2023 Other hammer toe(s) (acquired), right foot (ICD-10 - M20.41) The patient was educated regarding how to mechanically stabilize their deformity. The patient was given education about shoe recommendations specific for the condition. The patient was educated about custom orthotics and how appropriate shoes and orthotics can prevent further worsening of the deformity. The patient was educated about how bad shoe habits can worsen the condition. NSAIDS, P.T., injections and other conservative treatments were discussed. Both surgical and non surgical treatments were discussed, but conservative options were emphasized. 12/18/2023 Tinea unguium (ICD-10 - B35.1) Aseptic debridement of elongated thickened nails x 10 using sterile nippers, nails were debrided in length and thickness by 30% utilizing a nail nipper without incident. The patient was educated regarding all treatment options that include topical and oral antifungal treatments. I discussed the options of taking a sample of the nail to confirm diagnosis. Nail clippings were not sent for pathology analysis. The patient was educated why and how the fungal infection evolved in their feet and the patient was given information regarding how to prevent further infection. The patient was told to keep feet dry and change socks. The patient was told to be careful with old shoes and excessive sweating. The patient was educated regarding both OTC and prescription treatments. 12/18/2023 Other hammer toe(s) (acquired), right foot (ICD-10 - M20.41) The patient was educated regarding how to mechanically stabilize their deformity. The patient was given education about shoe recommendations specific for the condition. The patient was educated about custom orthotics and how appropriate shoes and orthotics can prevent further worsening of the deformity. The patient was educated about how bad shoe habits can worsen the condition. NSAIDS, P.T., injections and other conservative treatments were discussed. Both surgical and non surgical treatments were discussed, but conservative options were emphasized. 03/14/2024 Tinea unguium (ICD-10 - B35.1) Nails 1-5 Bilateral were debrided extensively with nail nippers and emery board, reducing length and girth to pink healthy tissue with any subungual debris and necrotic tissue removed 03/14/2024 Acquired keratosis [keratoderma] palmaris et plantaris (ICD-10 - L85.1) A total of 2 corns or calluses, as described in the note above, were cut and pared utilizing a #15 blade 05/17/2024 Tinea unguium (ICD-10 - B35.1) Nails 1-5 Bilateral were debrided extensively with nail nippers and emery board, reducing length and girth to pink healthy tissue with any subungual debris and necrotic tissue removed 05/17/2024 Acquired keratosis [keratoderma] palmaris et plantaris (ICD-10 - L85.1) A total of 2 corns or calluses, as described in the note above, were cut and pared utilizing a #15 blade 08/23/2024 Nondisplaced fracture of cuboid bone of [...] right foot, initial encounter (ICD-10 - M84.374A) 08/30/2024 Pain in right foot (ICD-10 - M79.671) 08/30/2024 Nondisplaced fracture of cuboid bone of right foot, subsequent encounter for fracture with routine healing (ICD-10 - S92.214D) Patient will continue CAM boot when outside her home. Around the home, she may wear a supportive athletic shoe. IF pain develops, she is to return to the CAM boot 08/05/2024 Nondisplaced fracture of cuboid bone of right [...] The patient was instructed on its use. 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, bilateral legs (ICD-10 - I70.213) 12/18/2023 Other hammer toe(s) (acquired), left foot (ICD-10 - M20.42) 10/14/2023 Other hammer toe(s) (acquired), left foot (ICD-10 - M20.42) 10/14/2023 Pain in right toe(s) (ICD-10 - M79.674) 12/18/2023 Pain in right toe(s) (ICD-10 - M79.674) 03/14/2024 Pain in right foot (ICD-10 - M79.671) 05/17/2024 Pain in right foot (ICD-10 - M79.671) 08/23/2024 Tinea unguium (ICD-10 - B35.1) 05/17/2024 Pain in left foot (ICD-10 - M79.672) 03/14/2024 Pain in left foot (ICD-10 - M79.672) 12/18/2023 Pain in left toe(s) (ICD-10 - M79.675) 10/14/2023 Pain in left toe(s) (ICD-10 - M79.675) 10/14/2023 Pain in right foot (ICD-10 - M79.671) 12/18/2023 Pain in right foot (ICD-10 - M79.671) 12/18/2023 Pain in left foot (ICD-10 - M79.672) 10/14/2023 Pain in left foot (ICD-10 - M79.672) 10/14/2023 Unspecified atherosclerosis of torres martinez arteries of extremities, bilateral legs (ICD-10 - I70.203) Patient educated on risks and aggravating factors of PVD, including conservative treatment options such as a diet and exercise regimen to aid in slowing progression of vascular disease 12/18/2023 Unspecified atherosclerosis of torres martinez arteries of extremities, bilateral legs (ICD-10 - I70.203) Patient educated on risks and aggravating factors of PVD, including conservative treatment options such as a diet and exercise regimen to aid in slowing progression of vascular disease 12/18/2023 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 After removal of overlying extensive hyperkeratosis, healthy tissue was noted and care was taken to assure that no undermining or probing was present. It should be noted that no probing was noted and no infection or drainage was noted. 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 After removal of overlying extensive hyperkeratosis, healthy tissue was noted and care was taken to assure that no undermining or probing was present. It should be noted that no probing was noted and no infection or drainage was noted. 08/30/2024 Other Plan Of Treatment Next Appt Details Provider Name:KELLI SHANKAR, 10/25/2024 10:40:00 AM, [address] [facility], [facility] [address], [place], [place], [id number], Insurance Providers Payer Name Payer Address Payer Phone Subscriber Number Group Number Insured Name Patient Relationship to Insured Coverage Start Date Coverage End Date [facility] [address] [address] [place] [id number] RICH IVAN Self - patient is the insured
--- OUTSIDE RECORDS SUMMARY | 2024-09-29 12:44 | XMS_ITS | Clinical Summary ---
Author Organization [employer] [facility] Address [address] [facility] [place] [address] Care Team Providers Care Intertype Operator Name Role Phone Unavailable Primary Care Provider Unavailabl e Allergies Active Allergy Reactions Criticality Noted Date Comments Codeine Rash Low 10/02/2022 Morphine Itching Low 10/02/2022 Rivaroxaban Other (See Comments) 10/02/2022 blisters, hemorrhage Medications cyclobenzaprine (FLEXERIL) 5 mg Tablet Take 1 Tablet (5 mg) by mouth every 8 hours as needed. 60 Tablet 3 12:47 PM CDT 023 Active amoxicillin (AMOXIL) 500 mg capsule Take 4 Capsules (2,000 mg) by mouth one hour prior to procedure 12 Capsule 1 3 11:38 AM CDT 023 Active losartan (COZAAR) 100 mg tablet Take 1 Tablet (100 mg) by mouth daily. 90 Tablet 1 4 12:31 PM DIRECTOR GENERAL 023 Active fluticasone propion-salmete roL (Advair HFA) 230-21 mcg/actuation HFA Aerosol Inhaler Inhale 2 puffs by mouth twice daily; rinse mouth with water after use, do not swallow 12 Gram 11 4 12:19 PM CDT 023 Active albuterol (PROVENTIL,VENT LUDWIG) 2.5 mg /3 mL (0.083 %) Solution for Nebulization Inhale the contents of one vial (3 ml) via nebulizer every 6 (six) hours as needed for wheezing or shortness of breath 360 mL 3 024 Active atorvastatin (LIPITOR) 40 mg tablet Take 1 tablet (40 mg total) by mouth daily. 90 Tablet 3 4 11:20 AM CDT 024 Active losartan (COZAAR) 100 mg tablet Take 1 Tablet (100 mg) by mouth daily. 90 Tablet 3 024 Active Omnaris nasal spray Administer 2 sprays into each nostril daily. 37.5 Gram 3 024 Active atorvastatin (LIPITOR) 40 mg tablet Take 1 tablet (40 mg total) by mouth daily. 90 Tablet 024 Active hydrocortisone (Procto-Med HC) 2.5 % cream with perineal applicator Apply rectally twice daily as needed 30 Gram 4 11:47 AM CDT 024 Active meloxicam (MOBIC) 7.5 mg tablet Take 1 Tablet (7.5 mg) by mouth daily. 30 Tablet 4 1:02 PM CDT 024 Active sodium, potassium and magnesium sulfates (SUPREP) 17.5-3.13-1.6 gram Recon Soln Take 177 mLs by mouth every 12 (twelve) hours for 1 day. (Take as directed in the instructions provided by ) 354 mL 4 10:17 AM DIRECTOR GENERAL 024 Active potassium chloride (KLOR-CON M20) 20 mEq Extended Release tablet Take 1 Tablet (20 mEq) by mouth daily. 30 Tablet 3 5 2:23 PM DIRECTOR GENERAL 024 Active ofloxacin (FLOXIN) 0.3 % Drops Place 10 drops into the right ear daily for 10 days. 5 mL 4 6:14 PM CDT 024 Active fluocinolone and shower cap (Kinder-Smoothe/ FS Scalp Oil) 0.01 % Oil Apply to affected areas two times a day for 2-3 weeks and then as needed for itch 118.28 mL 6 4 1:12 PM CDT 024 Active albuterol sulfate HFA 90 mcg/actuation aerosol inhaler Inhale 2 puffs by mouth every 6 (six) hours as needed for wheezing 8.5 Gram 1 5 11:34 AM CDT 024 Active fluticasone propion-salmete roL (ADVAIR DISKUS,WIXELA INHUB) 500-50 mcg/dose disk inhaler Inhale 1 puff by mouth 2 (two) times a day. Rinse mouth with water after use. Do not swallow. 60 Each 11 5 11:03 AM CDT 025 Active montelukast (SINGULAIR) 10 mg tablet Take 1 tablet (10 mg total) by mouth nightly 90 Tablet 3 5 11:03 AM CDT 025 Active latanoprost (XALATAN) 0.005 % solution Instill one drop into both eyes at bedtime 7.5 mL 4 5 11:23 AM CDT 025 Active traZODone (DESYREL) 50 mg tablet Take 0.5 tablet (25 mg) by mouth daily at bedtime. 45 Tablet 1 5 10:20 AM DIRECTOR GENERAL 025 Active Triamcinolone Acetonide 0.05 % Ointment Apply small amount to rash on legs 430 Gram 1 5 6:59 PM CDT 025 Active lidocaine (LIDODERM) 5 % Adhesive Patch, Medicated Apply 1 patch on the skin of left knee daily for 12 hours as directed 30 Patch 3 025 Active clobetasoL (TEMOVATE) 0.05 % Solution Apply a couple drops to scalp two times a day for itch flares for 2-3 weeks then as needed 50 mL 2 5 5:01 PM T 025 Active metoprolol tartrate (LOPRESSOR) 25 mg tablet Take 0.5 tablet (12.5 mg total) by mouth 2 (two) times daily. 60 Tablet 1 5 5:01 PM CDT 025 Active hydroCHLOROthia zide 25 mg tablet Take 0.5 tablets (12.5 mg total) by mouth every morning. 30 Tablet 2 5 4:34 PM CDT 025 Active hydroCHLOROthia zide 25 mg tablet Take 1 tablet (25 mg total) by mouth every morning. 30 Tablet 2 5 3:09 PM CDT 025 Active hydroCHLOROthia zide 25 mg tablet Take 0.5 tablet (12.5 mg) by mouth daily in the morning. 30 Tablet 2 04/25/2 025 Active doxazosin (CARDURA) 4 mg tablet Take 1 tablet (4 mg total) by mouth nightly at bedtime. 30 Tablet 3 5 11:03 AM CDT 025 Active atorvastatin (LIPITOR) 40 mg tablet Take 1 tablet (40 mg total) by mouth daily. 90 Tablet 5 3:09 PM CDT 025 Active sertraline (ZOLOFT) 100 mg tablet Take 1.5 tablets (150 mg total) by mouth daily. 135 Tablet 3 5 3:09 PM CDT 025 Active amoxicillin (AMOXIL) 500 mg capsule Take 4 Capsules (2,000 mg) by mouth 1 hour prior to procedure 12 Capsule 1 5 6:22 PM CDT 025 Active clotrimazole (LOTRIMIN) 1 % Cream apply externally once daily as directed 30 Gram 5 025 Active losartan (COZAAR) 100 mg tablet Take 1 Tablet (100 mg) by mouth daily. 90 Tablet 1 5 11:03 AM CDT 025 Active dabigatran etexilate (PRADAXA) 150 mg Capsule Take 1 capsule (150 mg total) by mouth 2 (two) times daily. 60 Capsule 5 5 6:43 PM CDT 025 Active gabapentin (NEURONTIN) 100 mg capsule Take 1 capsule (100 mg total) by mouth 2 (two) times daily AND 3 capsules (300 mg total) nightly at bedtime. 150 Capsule 11 5 11:16 AM CDT 025 Active triamcinolone acetonide (KENALOG) 0.1 % Cream Apply topically 2 (two) times daily as directed 454 Gram 5 11:16 AM CDT 025 Active losartan (COZAAR) 100 mg tablet Take 1 Tablet (100 mg) by mouth daily. 90 Tablet 1 5 6:59 PM CDT 025 2024 Discontinued pantoprazole (PROTONIX) 40 mg Tablet, Delayed Release (E.C.) Take 1 tablet (40 mg total) by mouth daily. 30 Tablet 2 5 3:41 PM DIRECTOR GENERAL 025 2024 Discontinued apixaban (Eliquis) 5 mg tablet Take 1 tablet (5 mg total) by mouth 2 (two) times daily. 60 Tablet 1 5 1:16 PM CDT 025 2024 Discontinued gabapentin (NEURONTIN) 100 mg capsule Take 1 capsule (100 mg total) by mouth 3 (three) times daily. 90 Capsule 11 5 8:25 AM CDT 025 2024 Discontinued(D ose/form adjustment) semaglutide, weight loss, (Wegovy) 0.25 mg/0.5 mL Pen Injector Inject 0.5 mL (0.25 mg) by subcutaneous injection every 7 days. 2 mL 025 2024 Discontinued triamcinolone acetonide (KENALOG) 0.1 % Cream Apply topically 2 (two) times daily as directed 454 Gram 11:23 AM CDT 025 2024 Discontinued Encounters Date Type Department Care Team Description 09/21/2024 External Device Data [facility] Provider, Abstract 09/01/2024 External Device Data [facility] Provider, Abstract 08/31/2024 External Device Data [facility] Provider, Abstract 08/31/2024 External Device Data [facility] Provider, Abstract 08/03/2024 External Device Data [facility] Provider, Abstract 08/03/2024 External Device Data [facility] Provider, Abstract 07/12/2024 External Device Data [facility] Provider, Abstract 07/07/2024 External Device Data [facility] Provider, Abstract 07/06/2024 External Device Data [facility] Provider, Abstract from Last 3 Months Immunizations Immunization Administration Dates Next Due (ADACEL/BOOSTRIX)(10 YR UP) TDAP VACCINE, 0.5ML, IM 10/20/2023 (AREXVY)(60 YR UP) RSV, RICKY MBINANT, PROTEIN SUBUNIT RSVPREF, ADJUVANT RECONSTITUTED, 0.5 ML, PF 11/04/2022 INFLUENZA VACCINE HIGH DOSE QUADRIVALENT 65 YR U P PF IM 11/04/2022 Social History Tobacco Use Types Packs/Day Years Used Date Smoking Tobacco: Never Assessed Comments Unknown Sex and Gender Information Value Date Recorded Sex Assigned at Not on file Legal Sex Female 2:15 PM CDT Gender Identity Not on file Sexual Orientation Not on file Plan of Treatment Health Maintenance Due Date Last Done Comments PNEUMOCOCCAL VACCINE 50+ YEARS (1 of 1 - PCV) 09/19/18 95 ZOSTER VACCINE (1 of 2) 1994 OSTEOPOROSIS SCREENING 2009 INFLUENZA VACCINE (#1) 2024 11/04/2022 DTAP/TDAP/TD VACCINES (2 - Td or Tdap) 10/19/2033 RSV VACCINE (60+ or ) Completed 11/04/2022 Insurance RX [employer] (INTERNAL) [facility] [employer] RX [employer] Medicare Part B RX [employer] RX Member Subscriber Plan / Payer (Ef fective 2023-Present) Name:Sharon Shepherd I Relation to Subscriber:Not on file Name:Sharon Shepherd I Subscriber ID:Not on file Date of :1945 Payer ID:Not on file Group ID:[id number] Type:RX Medicare Part D Address: [address] [place] [facility] [employer]
--- OUTSIDE RECORDS SUMMARY | 2024-09-29 12:44 | XMS_ITS | Continuity of Care Document ---
Author Organization [facility], TD Address [address] [place] [address] Phone Care Team Providers Care Major Account Representative Name Role Phone Mariano OSULLIVAN PhD, Nikki Unavailable Unavailable Allergies, Adverse Reactions, Alerts Substance Reaction Status Criticality No Known Allergies Active No Inform ation Medications Medication Instructions Dosage Effective Dates (start - stop) Status Comments latanoprost 0.005 % Eye Drops 1 gtt. OU [facility] - Active 90 day supply ZETONNA (unknown strength) Not Available - Active ASTELIN (unknown strength) Not Available - Active ARTIFICIAL TEARS (unknown strength) Not Available - Active SUDAFED (unknown strength) Not Available - Active PRAVASTATIN SODIUM (unknown strength) Not Available - Active ZOLOFT (unknown strength) Not Available - Active SAYDA ALLERGY (unknown strength) Not Available - Active ESTRACE (unknown strength) Not Available - Active latanoprost 0.005 % Eye Drops 1 gtt. OU [facility] - No Longer Active equal to insureds coverage of 90 day supply Procedures Procedure Date EYE EXAM ESTABLISHED PATIENT, MEDICAL Au g GONIOSCOPY SHARP VISUAL FIELD EYE EXAM ESTABLISHED PATIENT, MEDICAL Ma REFRACTION NO UPDATE Scan Image/ OCT, Glaucoma EYE EXAM ESTABLISHED PAT, MEDICAL SHARP VISUAL FIELD, BI-LATERAL EYE EXAM ESTABLISHED PAT, MEDICAL GONIOSCOPY EYE EXAM ESTABLISHED [facility], MEDICAL EYE EXAM ESTABLISHED [facility], MEDICAL EYE EXAM ESTABLISHED PATIENTJANINE Ja REFRACTION OPTIONAL UPDATE Scan Image/ OCT, Glaucoma EYE EXAM ESTABLISHED [facility], MEDICAL EYE EXAM ESTABLISHED [facility], MEDICAL SHARP VISUAL FIELD, BI-LATERAL Slip On Sunglasses EYE EXAM ESTABLISHED [facility], MEDICAL GONIOSCOPY EYE EXAM ESTABLISHED JANINE MAR No REFRACTION UPDATE SCAN IMAGING, BI-LATERAL Advance Directives Directive Yes / No Effective Date File Name No Information Encounters Encounter Description Practice Location Reason(s) For Visit Diagnoses Date Provider Providers Copied on Encounter [facility], [facility], [address] [place] [address], [id number] , [place] tel:[phone] [facility] Ocular hypertensionOcular hypertension 3 Mariano Jordan. [address] [place] [address], [address], [place]. tel:[phone] Referring Provider: Nikki Quintana V, [address] [place] [address], [id number]. tel:[phone] [facility], [facility], [address] [place] [address], [id number] , [place] tel:[phone] [facility] Primary open angle glaucomaConjunctiv itis, unspecifiedMILD STAGE GLAUCOMALens replaced by other means 3 Christie Garcias. [address] [place] [address], [address], [place], [place], [id number], [place]. tel:[phone] Referring Provider: Dieter Wong, [address] [place] [address] [address], [place], [address] . tel:[phone] [facility], [facility], [address] [place] [address], [id number] , [place] tel:[phone] [facility] Primary open angle glaucomaLens replaced by other meansMILD STAGE GLAUCOMA 3 Christie Garcias. [address] [facility] [address] [facility], [place], [place], [id number], [place]. tel:[phone] Referring Provider: Dieter Wong, [facility] [address] [facility] [address] [facility], [place], [address] . tel:[phone] [facility], [address] [place] [address], [id number] , tel:[phone] [facility] Open-angle glaucoma, unspecifiedMILD STAGE GLAUCOMA 2 Christie Garcias. [facility] [address] [facility] [address] [facility], [place], [place], [id number], [place]. tel:[phone] Referring Provider: Dieter Wong, [address] [place] [address], [place], [address] . tel:[phone] [facility], [address] [place] [address], [id number] , tel:[phone] [facility] Conjunctivitis, unspecified 2 Christie Garcias. [facility] [address] [facility] [address] [facility], [place], [place], [id number], [place]. tel:[phone] Referring Provider: Dieter Wong, [address] [place] [address] [place] [address], [address] . tel:[phone] [facility], [address] [place] [address], [id number] , tel:[phone] [facility] Open-angle glaucoma, unspecifiedMILD STAGE GLAUCOMAConjunctiv itis, unspecifiedBlephar itis, unspecifiedLens replaced by other means 2 Christie Garcias. [address] [facility], [address] [facility], [place], [place], [id number], [place]. tel:[phone] Referring Provider: Dieter Wong, [address] [place] [address] [address], [place], [address] . tel:[phone] [facility], [address] [place] [address], [id number] , tel:[phone] [facility] Open-angle glaucoma, unspecifiedLens replaced by other meansConjunctiviti s, unspecifiedBlephar itis, unspecifiedMILD STAGE GLAUCOMA 2 Christie Garcias. [facility] [address] [facility], [address], [place], [place], [id number], [place]. tel:[phone] Referring Provider: Dieter Wong, [address] [place] [address] [address] [facility], [place], [address] . tel:[phone] [facility], [address] [place] [address], [id number] , tel:[phone] [facility] Open-angle glaucoma, unspecifiedMILD STAGE GLAUCOMAConjunctiv itis, unspecifiedBlephar itis, unspecifiedLens replaced by other means 1 No Information [facility], [address] [place] [address], [id number] , tel:[phone] [facility] Open-angle glaucoma, unspecifiedConjunc tivitis, unspecifiedBlephar itis, unspecifiedLens replaced by other meansMILD STAGE GLAUCOMAOpen-angle glaucoma, unspecifiedBlephar itis, unspecifiedLens replaced by other meansConjunctiviti s, unspecified 1 Christie Garcias. [address] [place] [address], [address] [facility], [place], [place], [id number], [place]. tel:[phone] Referring Provider: Dieter Wong, [address] [place] [address] [address], [place], [address] . tel:[phone] [facility], [address] [place] [address], [id number] , [place] tel: [phone] [facility] No Information 1 Christie Garcias. [address] [place] [address] [address] [facility], [place], [place], [id number], [place]. tel:[phone] Referring Provider: Dieter Wong, [address] [place] [address] [address] [address], [place], [address] . tel:[phone] [facility], [address] [place] [address], [id number] , tel:[phone] [facility] No Information 1 Christie Garcias. [address] [place] [address] [address] [facility], [place], [place], [id number], [place]. [phone] Referring Provider: Dieter Wong, [address] [place] [address] [address] [address], [place], [address] . tel:[phone] [facility], [address] [place] [address], [id number] , tel:[phone] [facility] No Information 1 Christie Garcias. [address] [place] [address] [address] [facility], [place], [place], [id number], [place]. tel:[phone] Referring Provider: Dieter Wong, [address] [place] [address] [address] [facility], [place], [address] . tel:[phone] [facility], [address] [place] [address], [id number] , [place] tel:[phone] [facility] No Information 1 Christie Garcias. [address] [place] [address] [address] [facility], [place], [place], [id number], [place]. tel:[phone] [facility], [address] [place] [address], [id number] , [place] [phone] [facility] No Information 0 Christie Garcias. [address], [address], [place], [place], [id number], . tel:[phone] Referring Provider: Dieter Wong, [address], [place], [address] . tel:[phone] Family History Family Member Type Diagnosis Age At Onset Problem (finding) No Family history of Ar thritis Problem (finding) No Family history of St rabismus Problem (finding) No Family history of Di abetes mellitus Father Problem (finding) glaucoma Problem (finding) No Family history of St roke Problem (finding) No Family hist ory of Macular Degeneration Problem (finding) No Family history of As thma Problem (finding) No Family history of Re tinal Disorders Problem (finding) No Family history of Re spiratory Disease Father Problem (finding) HBP Problem (finding) No Family history of He art Disease Problem (finding) No Family history of Ca taracts Payers Payer name Insurance type Covered republican ID Authoriza tion(s) [place] [id number] [facility] [id number] Social History Type Description Quantity Date Captured Comments Alcohol Use Details Unknown Caffeine Use Details Unknown Tobacco Use Status No Information Smoking Status Never smoker Non-Smoking Tobacco Use Details : No Details Available : No Details Available Sex Female Chief Complaint And Reason For Visit No Information Reason For Referral Reason For Referral No Information History Of Present Illness Encounter Date Complaint History Of Prese nt Illness No Information Functional Status Date Functional Assessmen t No Information Instructions Date Instruction Additional Infor mation - Return in 6 months with [facility] for T (tonopen and applanation)& D and Disc Photos. Related to Ocular hypertension Ocular hypertension OU. Condition: will continue to monitor. - Ocular Hypertension: Pt does not have glaucoma because there is no visual field loss, HVF today and previous are normal. Continue with Latanoprost q hs OU. Pt can consider doing SLT to keep pressures done without having to use drops. explained SLT (selective laser trabeculoplasty) to pt in detail. SLT is a low risk outpatient procedure, that helps the drain to work better. After treament IOP may increase but can be repeated if necessary, risks include but not limited to blurry vision, inflammation and possible inefficacy. All questions and concerns were answered, pt states they understand. advised pt on exercise considerations.Blepharitis: described blepharitis in detail with pt. explained why eye are getting irritated when using make up. advised pt to clean lids with baby shampoo and WWCs. Educational materials provided:Blepharitis, lid cleaning, and WWC Related to Ocular hypertension - Return in 3 months with [facility] for T and slamp. Related to Conjunctivitis, unspecified Primary open angle g laucoma OU. Condition: stable. MILD STAGE GLAUCOMA OU. Condition: stable. IOL OU. Condition: stable. - 1. OAG OU MILD OU Target <21 OU Meeting with drops. CONT: Latanoprost OU HS2. Pc/IOL OU: Clear3. Dry eye: Asymptomatic CONT: Tears OU QID, PRN Educational materials provided:none needed. Related to Conjunctivitis, unspecified - Repeat visual field in 1 year OU. Related to Central 30-2 test performed. - Repeat visual field in 1 year OU. Related to Central 30-2 test performed. - Return in 3 months with [facility] for Ref T & D and OCT (ON). Related to Primary open angle glaucoma Primary open angle g laucoma OU. Condition: will continue to monitor. MILD STAGE GLAUCOMA OU. Condition: will continue to monitor. IOL OU. Condition: established, stable. - 1. OAG OU MILD OU Target <21 OU Meeting w drops. CONT: Latanoprost OU HS2. Pc/IOL OU: clear3. Dry eye: Asymptomatic CONT: Tears OU qid and prn5. Allergic Conj: Treats with Pataday OU HS PRN. If pt calls and needs antibiotic drop refilled it is okay to do so per [facility] Educational materials provided:none needed. Related to Primary open angle glaucoma - Return in 3 months with [facility] for Visual Field (30-2), T and slamp. Related to Open-angle glaucoma, unspecified Open-angle glaucoma, unspecified OU. Condition: well controlled. MILD STAGE GLAUCOMA OU. Condition: well controlled. - 1. OAG OU MILD OU Target <21 OU Meeting w drops despite recent use of nasal steroid spray (Zetonna) for allergies. Cont: Latanoprost OU HS2. pc/IOL OU: clear3. Dry eye: Tears OU qid and prn5. Allergic Conj: Treats with Pataday OU HS PRN. If pt calls and needs antibiotic drop refilled it is okay to do so per CHINTANLETTER TO Joanna RAMON MD,done Related to Open-angle glaucoma, unspecified - [facility] for T and slamp. Related to Conjunctivitis, unspecified Conjunctivitis, unsp ecified OD. Condition: will likely improve. - 1. Conjunctivitis, unspecified OD: recurrent a. Advised patient of condition. New medication(s) Rx given today. Educational materials provided:none needed.START: Ciprofloxacin OD QID x 7 days 2. OAG OU: IOP target mid teens, meeting with dropsCONT: Latanoprost Related to Conjunctivitis, unspecified - 3 mo T, gonio with [facility] Related to MILD STAGE GLAUCOMA OAG MILD OU, Target <21 OU (CD5/5, Nov, VF Ess full OU, pachy 525/528) Meeting c gtts. IOL OU Conjunctivitis, unspecified OU Blepharitis OU - 1. OAG OU MILD OU Target <21 OU Meeting c gtts Cont: Latanoprost OU HS2. pc/IOL OU3. Blepharitis/2ndary conjunctivitis-> Erythromycin Eye thomas OU hs with warm compress OU hs PRN4. Dry eye->Tears OU qid and prn5. Allergic Conj->Cont Pataday OU HS PRNLETTER TO Joanna RAMON MD,done Related to MILD STAGE GLAUCOMA - 3 mo c [facility]/IOP check Related t o Open-angle glaucoma, unspecified OAG MILD OU, Target <21 OU (CD5/5, OCT , VF Ess full OU, pachy 525/528) Meeting c gtts) IOL OU Conjunctivitis, unspecified OU Blepharitis OU - 1. OAG OU MILD OU Target <21 OU (CD5/5, OCT , VF Ess full OU, pachy 525/528) Meeting c gtts-> Cont Xal OUhs2. pc/IOL OU3. Blepharitis/2ndary conjunctivitis-> Erythromycin Eye thomas OU hs with warm compress OU hs. 4. Dry eye->Tears OU qid and prn5. Allergic Conj->Cont Pataday OU hs. 6. Slight change in OS refraction->Rx update optionalLETTER TO Joanna RAMON MD,done Related to Open-angle glaucoma, unspecified - Feb with [facility]: OA t o RT & D & OCT disc Related to Open-angle glaucoma, unspecified Open-angle glaucoma OU: IOP target <21 OU (CD=5/5 OCT, VF Ess full OU, pachy 525/535). Managing c gtts Blepharitis OU IOL OU Conjunctivitis OU Dry Eye OU. - 1.Blepharitis OU Start:Art Tear OU QID, ERYTHROMYCIN OU HS after warm compress x 15 mins Cont: ciprofloxacin as rx'd by ER for 3 more days2.Open-angle glaucoma OU: IOP target <21 OU (CD=5/5 OCT, VF Ess full OU, pachy 525/535). Meeting c gtts->Cont:LATANOPROST OU HS,3. Allergic Conjunctivitis-> PATADAY OU Q4. Dry eye OU.Letter next visit to Dr. Gisselle Ramon Related to Open-angle glaucoma, unspecified Open-angle glaucoma OU: IOP target <21 OU. Managing c gtts Blepharitis OU IOL OU Conjunctivitis OU Dry Eye OU. - 1.Blepharitis OU Start:Art Tear OU QID, ERYTHROMYCIN OU HS after warm compress x 15 mins Cont: ciprofloxacin as rx'd by ER for 3 more days2.Open-angle glaucoma OU: IOP target <21 OU. Meeting c gttsCont:LATANOPROST OU HS, PATADAY OU QD Related to Conjunctivitis, unspecified Assessments Type Assessment Date No Information Patient Care Teams Name Effective Dates (start - stop) Status Members No Information
--- OUTSIDE RECORDS SUMMARY | 2024-09-29 12:44 | XMS_ITS | Encounter Summary ---
Author Organization [facility] Facility Care Team Providers Care Knife Operator Name Role Phone Kvng London MD Primary Care Provider [phone] No, Physician Primary Care Provider [phone] Kvng London MD Primary Care Provider [phone] Natividad, Physician Primary Care Provider [phone] Kvng London MD Primary Care Provider [phone] Natividad, Physician Primary Care Provider [phone] Kvng London MD Primary Care Provider [phone] Rosio Tomlin NP Primary Care Provider [phone] Encounter Details Date Type Department Care Team (Latest Contact Info) Description 09/04/2015 Orders Only [facility] CLINCONV ProviderElisabet MD [address] [place] [address] Social History Tobacco Use Types Packs/Day Years Used Date Smoking Tobacco: Never Assessed Comments Unknown Sex and Gender Information Value Date Recorded Sex Assigned at Not on file 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 us Historical Provider Final Res ult documented in this encounter Visit Diagnoses Not on filedocumented in this encounter Care Teams Knife Operator Relationship Specialty Start Date End Date Kvng London MD PCP - General 09/29/16 10/14/16 No, Physician PCP - General 10/15/16 10/20/16 Kvng London MD PCP - General 10/21/16 10/30/16 No, Physician PCP - General 10/31/16 11/03/16 Kvng London MD PCP - General 11/04/16 11/04/16 No, Physician PCP - General 11/05/16 11/13/16 Kvng London MD PCP - General 11/14/16 01/02/20 Rosio Tomlin, ELECTRONIC WARFARE TECHNICAL [address] [place] [address] PCP - General Traffic Coordinator 01/03/20 documented as of this encounter
--- OUTSIDE RECORDS SUMMARY | 2024-09-29 12:44 | XMS_ITS | Encounter Summary ---
Author Organization [facility] Facility Care Team Providers Care Security Installation Sales Technician Name Role Phone Kvng London MD Primary Care Provider [phone] No, Physician Primary Care Provider [phone] Kvng London MD Primary Care Provider [phone] Natividad, Physician Primary Care Provider [phone] Kvng London MD Primary Care Provider [phone] Natividad, Physician Primary Care Provider [phone] Kvng London MD Primary Care Provider [phone] Rosio Tomlin NP Primary Care Provider [phone] Encounter Details Date Type Department Care Team (Latest Contact Info) Description 07/27/2014 Orders Only [facility] CLINCONV ProviderElisabet MD [address] [place] [address] Social History Tobacco Use Types Packs/Day Years Used Date Smoking Tobacco: Never Assessed Comments Unknown Sex and Gender Information Value Date Recorded Sex Assigned at Not on file 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 us Historical Provider Final Res ult documented in this encounter Visit Diagnoses Not on filedocumented in this encounter Care Teams Security Installation Sales Technician Relationship Specialty Start Date End Date Kvng London MD PCP - General 09/29/16 10/14/16 No, Physician PCP - General 10/15/16 10/20/16 Kvng London MD PCP - General 10/21/16 10/30/16 No, Physician PCP - General 10/31/16 11/03/16 Kvng London MD PCP - General 11/04/16 11/04/16 No, Physician PCP - General 11/05/16 11/13/16 Kvng London MD PCP - General 11/14/16 01/02/20 Rosio Tomlin BOTANICAL TECHNICAL OFFICER [address] [place] [address] PCP - General Infantry Assaultman 01/03/20 documented as of this encounter
--- NOTE | 2024-09-29 13:57 | CY_PTH ---
PATIENT: Sharon Shepherd I LOC: ANHIMG #:[id number] AGE/SX: 79/F ROOM: RE09/29/[address]: Evelio Britton MD : 1945 BED: DIS: 09/29/2024 SPEC #: [id number] RECD: 09/29/24 14:02 STATUS: CIRILO REFlorence #: [id number] KARRI: 09/29/24 13:[address]: Evelio Britton DEPT: [facility] Cytology RECD BY: Tejal Amezquita MLT, ([facility]) Tissues: A - FNA Thyroid Procedures: Hematoxylin and Eosin Stain Cell Block Fine Needle Aspiration Evaluation Fna Additional Pass Fine Needle Aspiration Pathologist
== END 2024-09-29 12:40 | disposition home or self-care (01) ==
PROVIDERS: Visit Provider Otolaryngology
DX: E04.1 Nontoxic single thyroid nodule (principal)
CPT/HCPCS: 10005; 88172; 88173; 88177; 88305

== ENCOUNTER 2025-01-25 12:25 | Outpatient (CLI) | payer MEDICARE, SELFPAY ==
--- NOTE | ~2025-01-25 | US_ITS ---
EXAMINATION: US FNA w image guidance DATE: 01/25/2025 13:33 INDICATION: Nontoxic single thyroid nodule TECHNIQUE: A time-out was performed to verify the patient's name, date of , and procedure to be performed. The procedure and its benefits and risks were discussed with the patient. Risks specifically discussed included bleeding and infection. The patient understood the risks and agreed to proceed. The neck was prepped and draped in the usual sterile manner. 5 mL 1% lidocaine was used for local anesthesia. 5 passes were made with a 25G needle into the lesion. Appropriate needle location was documented with continuous sonographic guidance. A sterile bandage was applied. There were no immediate complications. FINDINGS: Grayscale ultrasound images demonstrate biopsy needles advanced into the solid component of a 1.6 cm mixed solid and cystic nodules in the left thyroid lobe. IMPRESSION: 1. Successful ultrasound-guided fine needle aspiration of a 1.6 cm mixed solid and cystic left thyroid nodule. Reviewed, dictated and finalized at location A. OR PROFESSIONAL SERVICES CONSULTANT
--- NOTE | 2025-01-25 13:29 | CY_PTH ---
PATIENT: Sharon Shepherd I LOC: ANHIMG #:[id number] AGE/SX: 79/F ROOM: RE01/25/[address]: Evelio Britton MD : 1945 BED: DIS: 01/25/2025 SPEC #: [id number] RECD: 01/25/25 13:39 STATUS: CIRILO REFlorence #: [id number] KARRI: 01/25/25 13:[address]: Evelio Britton DEPT: [facility] Cytology RECD BY: Tejal Amezquita MLT, ([facility]) Tissues: A - FNA Thyroid Procedures: Hematoxylin and Eosin Stain Cell Block Fine Needle Aspiration Evaluation Fine Needle Aspiration Pathologist
== END 2025-01-25 12:26 | disposition home or self-care (01) ==
PROVIDERS: Visit Provider Otolaryngology
DX: E04.1 Nontoxic single thyroid nodule (principal)
CPT/HCPCS: 10005; 88172; 88173; 88305